=== PATIENT | female | born 1960 | race Caucasian/White ===

== ENCOUNTER 2017-10-09 09:18 | Day surgery (SDC) | payer BC ==
[~2017-10-09 09:18] MED LIST: ACETAMINOPHEN 1,000 MG/100 ML BTL IV ONE
[2017-10-09] MEDS ORDERED: LIDOCAINE 2% MDV (20MG/ML) 20ML VIAL IV ONE (09:19)
[2017-10-09] MEDS ORDERED: FENTANYL PF 100MCG/2ML VIAL IV ONE (09:19)
[2017-10-09] MEDS ORDERED: KETOROLAC 30 MG/ML VIAL IVP ONE (09:19)
[2017-10-09] MEDS ORDERED: PROPOFOL 10 MG/ML VIAL IV ONE (09:19)
--- NOTE | 2017-10-12 09:10 | Operative Note ---
DATE OF SURGERY: 10/09/2017 Surgeon: Reagan Melo DO PREOPERATIVE DIAGNOSIS: Carpal tunnel syndrome of the left wrist. POSTOPERATIVE DIAGNOSIS: Carpal tunnel syndrome of the left wrist. OPERATION: Decompression left median nerve of the wrist using 3.5 loop magnification. DESCRIPTION OF PROCEDURE: This 57-year-old female was taken to the operating room and placed in the supine position on the operating room table. A general anesthetic was administered. Left upper extremity was elevated. It was prepped with Hibiclens and draped in the usual sterile fashion. Exsanguinated and the tourniquet inflated to 250 mmHg. A palmar incision was utilized following the hypothenar crease from the level of the base of the web space of the thumb to the flexor crease of the wrist. Dissection carried down through the skin and subcutaneous tissue. Hemostasis obtained with the electrocautery. Palmar fascia was divided in line with the skin incision to expose the transverse carpal ligament and flexor retinaculum. The latter was punctured, split to its proximal margin, and then with the contents of the carpal tunnel under direct vision, the transverse carpal ligament was transected along its ulnar border and the radial flap was raised to expose the entire median nerve under the transverse carpal ligament. Marked hyperemia and mild hourglass deformity was present. There were 2 small blood vessels on the ventral surface of the median nerve as well. These were not further disturbed. The recurrent motor branch of the median nerve was identified and found to be normal. The wound was copiously irrigated and tourniquet released. Hemostasis obtained with the electrocautery. The wound closed with interrupted 6-0 nylon suture. Sterile dressing with plaster splint immobilization was applied with the wrist in slight dorsiflexion and the thumb in an adducted position. The patient was then taken to the recovery room in satisfactory condition. [facility]
== END 2017-10-09 12:15 | disposition home or self-care (01) ==
LOC: SUR 09:18
PROVIDERS: ATTEND Orthopaedic Surgery
DX: G56.02 Carpal tunnel syndrome, left upper limb (principal); I10 Essential (primary) hypertension
CPT/HCPCS: 64721; 01810; 93005; 93010; J1885; J3010